=== PATIENT | female | born 1970 | race Caucasian/White ===

== ENCOUNTER 2020-11-27 07:53 | Emergency (ER) | payer BC ==
[~2020-11-27] VITALS: Ht 264.2 cm; Wt 118.0 kg
[2020-11-27] MEDS ORDERED: FLUO-191 PO (08:09)
[2020-11-27] MEDS ORDERED: ALPR0.25 PO (08:09)
[2020-11-27] MEDS ORDERED: HYDROCODONE/ACETAMINOPHEN 5-325 MG TABLET PO ONE (08:30)
[2020-11-27 09:50] VITALS: BP 165/78
== END 2020-11-27 10:02 | disposition home or self-care (01) ==
LOC: EMS 07:53
DX: S00.33XA Contusion of nose, initial encounter (principal); S80.02XA Contusion of left knee, initial encounter; F41.9 Anxiety disorder, unspecified; Z88.8 Allergy status to other drugs, medicaments and biological substances; Z88.1 Allergy status to other antibiotic agents; W01.0XXA Fall on same level from slipping, tripping and stumbling without subsequent striking against object, initial encounter; Y93.89 Activity, other specified; Y92.89 Other specified places as the place of occurrence of the external cause; Y99.8 Other external cause status
CPT/HCPCS: 70450; 70486; 99285